=== PATIENT | male | born 1980 | race Caucasian/White ===

== ENCOUNTER 2018-08-05 17:41 | Emergency (ER) | payer OTHER ==
[~2018-08-05] VITALS: Ht 180.3 cm; Wt 86.2 kg
[2018-08-05] MEDS ORDERED: COZAAR50 MG (17:47)
== END 2018-08-05 21:37 | disposition home or self-care (01) ==
LOC: ER 17:41
DX: I88.0 Nonspecific mesenteric lymphadenitis (principal)